=== PATIENT | male | born 1945 | race Caucasian/White ===

== ENCOUNTER → 2016-03-21 14:39 | Outpatient (CLI) | payer MEDICARE ==
[2016-01-27 13:11] VITALS: BMI 28.7
[~2016-03-21 14:39] MED LIST: AREDS PO; BAYER CHEWABLE81 MG PO; CHILDREN'S50 MG/1.21 PO; CIPRO250 MG PO; DURAGESIC1 PATCH .7 TRANSDERM; FLAGYL500 MG PO; HYDROCODON-ACE1 EAC7 PO; MIRALAX17 GM PO; PLAVIX75 MG PO; PRESERVISION AR1 CAP PO; PRINZIDE 20-251 TA1 PO
== END | disposition home or self-care (01) ==
LOC: D.CT 14:39
DX: R10.9 Unspecified abdominal pain (principal)

== ENCOUNTER → 2016-03-21 18:39 | Outpatient (CLI) | payer MEDICARE ==
[2016-01-27 13:11] VITALS: BMI 28.7
== END | disposition home or self-care (01) ==
LOC: D.LAB 18:39
DX: R10.9 Unspecified abdominal pain (principal)

== ENCOUNTER 2016-03-25 06:42 | Outpatient (CLI) | payer MEDICARE ==
[~2016-03-25] VITALS: Ht 177.8 cm; Wt 92.3 kg
[~2016-03-25 06:42] MED LIST changes: -AREDS PO; -CHILDREN'S50 MG/1.21 PO; -CIPRO250 MG PO; -DURAGESIC1 PATCH .7 TRANSDERM; -FLAGYL500 MG PO; -HYDROCODON-ACE1 EAC7 PO; -MIRALAX17 GM PO
[2016-03-25] MEDS ORDERED: FLAGYL500 MG PO (08:04)
[2016-03-25] MEDS ORDERED: CIPRO250 MG PO (08:04)
[2016-03-25 08:06] LABS: CALC OSMOLALITY 273 mosm/kg (275-300); CALCIUM 9.3 mg/dL (8.5-10.1); CARBON DIOXIDE 29.8 mmol/L (21.0-32.0); CHLORIDE - SERUM 99 mmol/L (98-107); GLUCOSE 109 mg/dL (74-106); POTASSIUM - SERUM 4.1 mmol/L (3.5-5.1); SODIUM 137 mmol/L (136-145); UREA NITROGEN 11 mg/dL (7-18); eGFR NON AFRICAN AMERICAN 79 mL/min (90-120)
[2016-03-25 08:13] VITALS: BP 123/68; Ht 177.8 cm; Wt 92.3 kg
[2016-03-25 08:16] LABS: BASOPHILS 0.6 % (0.0-2.0); HEMATOCRIT 38.2 % (42.0-54.0); HEMOGLOBIN 12.9 g/dL (13.5-17.5); IMMATURE GRANULOCYTES 0.2 % (0-5); LYMPHOCYTES 20.8 % (15-50); MCH 32.1 pg (26.0-34.0); MCHC 33.8 g/dL (31.0-37.0); MEAN PLATELET VOLUME 9.4 fL (7.4-10.4); MONOCYTES 7.8 % (2-11); NEUTROPHILS 58.6 % (40-80); PLATELET COUNT 380 10x3/uL (130-400); RBC 4.02 10x6/uL (4.20-6.10); RDW 12.4 % (11.5-14.5); WBC 10.4 10x3/uL (4.8-10.8)
[2016-03-25 08:20] LABS: APTT 29.4 SECONDS (22.8-39.4); INR 1.06 (0.85-1.17); PROTIME 13.6 SECONDS (11.6-15.0)
--- NOTE | 2016-03-25 12:35 | NUR ---
VOIDED WITHOUT DIFFICULTY. BACK DRESSING C/D/I. IV REMOVED INTACT. TO RADIOLOGY FOR SCAN PER WHEELCHAIR.
--- NOTE | 2016-03-25 13:20 | NUR ---
BACK FROM BONE SCAN AND DRESSED. DISCHARGE INSTRUCTIONS GIVEN, VOICED UNDERSTANDING. DISCHARGED HOME VIA WC.
== END 2016-03-25 13:20 | disposition home or self-care (01) ==
LOC: D.NM 06:42 → D.OPS 06:42 → D.NM 08:15 → D.OPS 13:20
PROVIDERS: General Practice
DX: C90.00 Multiple myeloma not having achieved remission (principal)

== ENCOUNTER 2016-04-05 08:01 | Day surgery (SDC) | payer MEDICARE ==
[~2016-04-05] VITALS: Ht 175.3 cm; Wt 87.3 kg
[~2016-04-05 08:01] MED LIST changes: +CIPRO250 MG PO; +FLAGYL500 MG PO
[2016-04-05] MEDS ORDERED: MIRALAX17 GM PO (09:29)
[2016-04-05] MEDS ORDERED: DURAGESIC1 PATCH .7 TRANSDERM (09:30)
[2016-04-05 09:32] LABS: BASOPHILS 0.6 % (0.0-2.0); EOSINOPHILS 15.8 % (0-7); HEMATOCRIT 37.5 % (42.0-54.0); HEMOGLOBIN 12.8 g/dL (13.5-17.5); IMMATURE GRANULOCYTES 0.2 % (0-5); LYMPHOCYTES 19.8 % (15-50); MCH 31.9 pg (26.0-34.0); MCHC 34.1 g/dL (31.0-37.0); MCV 93.5 fL (80.0-100.0); MEAN PLATELET VOLUME 9.3 fL (7.4-10.4); MONOCYTES 6.9 % (2-11); NEUTROPHILS 56.7 % (40-80); PLATELET COUNT 362 10x3/uL (130-400); RBC 4.01 10x6/uL (4.20-6.10); RDW 12.3 % (11.5-14.5); WBC 8.4 10x3/uL (4.8-10.8)
[2016-04-05] MEDS ORDERED: HYDROCODON-ACE1 EAC7 PO (09:33)
[2016-04-05] MEDS ORDERED: CHILDREN'S50 MG/1.21 PO (09:34)
[2016-04-05] MEDS ORDERED: AREDS PO (09:35)
[2016-04-05 09:37] LABS: CALC OSMOLALITY 275 mosm/kg (275-300); CALCIUM 9.2 mg/dL (8.5-10.1); CHLORIDE - SERUM 99 mmol/L (98-107); GLUCOSE 110 mg/dL (74-106); POTASSIUM - SERUM 4.3 mmol/L (3.5-5.1); SODIUM 138 mmol/L (136-145); UREA NITROGEN 11 mg/dL (7-18); eGFR NON AFRICAN AMERICAN 79 mL/min (90-120)
[2016-04-05 09:38] LABS: APTT 30.3 SECONDS (22.8-39.4); INR 1.03 (0.85-1.17); PROTIME 13.4 SECONDS (11.6-15.0)
[2016-04-05 09:40] VITALS: BP 122/68; Ht 175.3 cm; Wt 87.3 kg
--- NOTE | 2016-04-05 14:11 | NUR ---
1245 IV DC WITH CATHER TIP INTACT
--- NOTE | 2016-04-20 10:18 | OP ---
PATIENT NAME: REN MACIEL MEDICAL RECORD: [id number] :47 LOCATION:D.OPS ADMISSION DATE: SURGEON: HILARIO JOSUE MD DATE OF OPERATION: 04/05/2016 PREOPERATIVE DIAGNOSES: 1. History of colon polyps in need of surveillance colonoscopy. 2. CT evidence of metastatic disease to the bone with unknown primary. POSTOPERATIVE DIAGNOSES: 1. History of colon polyps in need of surveillance colonoscopy. 2. CT evidence of metastatic disease to the bone with unknown primary. 3. No evidence of colon polyps. No evidence of rectal masses, severe pain and diverticulosis. PROCEDURE: Total colonoscopy to cecum. SURGEON: Hilario Josue MD. AIRDROP SYSTEMS TECHNICIAN: None. BLOOD LOSS: Minimal. ANESTHESIA: IV sedation. COMPLICATIONS: None. The risks, possible complications and alternatives to procedure were explained to the patient. He elects to proceed. The discussion specifically included, but was not limited to, bleeding requiring an emergency reoperation, infection, intestinal injury and intestinal perforation. OPERATIVE COURSE: The patient was conveyed to the GI lab electively on 04/05/2016. IV sedation was induced by the anesthesia staff. The patient was placed in the Fletcher position. A digital rectal examination was performed. The prostate was symmetric. It was without nodules. It was of normal size. A colonoscope was inserted through the anus. It was easily advanced to the cecum. The prep was excellent. I slowly withdrew the endoscope. I irrigated and aspirated extensively. The pullback was greater than a 14-minute pullback. No biopsies were obtained. I dragged the folds. A retroflexed view was obtained in the rectum. I then unretroflexed the scope and removed it under direct vision. There is no followup appointment is going to be necessary for me in the office. I am going to plan for the patient's next colonoscopy to be in 3 years. TRANSINT:[id number] Voice Confirmation ID: [id number] DOCUMENT ID: [id number] OPERATIVE REPORT [id number] JANELLREN HILARIO RESENDEZ MD at 1018 CC: KENN SINGH DO and JAYDE GOMEZ MD [id number] DICTATION DATE: 04/05/16 1209 VISUAL EFFECTS ARTIST: 04/05/161912 [facility] 04/05/16 [facility] [address] [place] [address]
--- NOTE | 2016-04-20 10:18 | HP ---
PATIENT: REN MACIEL MEDICAL RECORD: [id number] ACCOUNT: [id number] LOCATION:PIETER : 47 ADMISSION DATE: 04/05/16 HISTORY AND PHYSICAL EXAMINATION CHIEF COMPLAINT: History of colon polyps. HISTORY OF PRESENT ILLNESS: The patient has a history of colon polyps. He is here to undergo a surveillance colonoscopy. The patient recently underwent a CT scan. It revealed a number of sclerotic lesions within the bone, which is consistent with metastatic disease. The patient states that he has not had any history of prostate cancer. He has had no abdominal pain. No rectal bleeding. The risks, possible complications and alternatives of procedure were explained to the patient. He elects to proceed. PAST MEDICAL AND SURGICAL HISTORY: COPD, sleep apnea, history of coronary stents times 1, gastroesophageal reflux which is medication controlled, hypertension. REVIEW OF SYSTEMS: Negative for diabetes or thyroid problems. Negative for renal disease or hepatitis. SOCIAL HISTORY: Smoker. I have advised him to quit smoking. ALLERGIES: No known drug allergies. HOME MEDICINES: Lisinopril, fentanyl patch, [place], ibuprofen. PHYSICAL EXAMINATION: GENERAL: The patient does not appear acutely ill. He does not appear chronically ill. VITAL SIGNS: Reviewed. HEAD: External ears appear normal. EYES: Extraocular movements are intact. NECK: Trachea is midline. CHEST: No intercostal retractions. PULMONARY: Nonlabored, no stridor. ABDOMEN: Nontender. IMPRESSION: 1. History of colon polyps. 2. Probable metastatic malignancy with an unknown primary. PLAN: Will be colonoscopy. TRANSINT:[id number] Voice Confirmation ID: [id number] DOCUMENT ID: [id number] HISTORY AND PHYSICAL [id number] REN MACIEL ROBERT MD at 1018 CC: KENN SINGH DO, KOTA, MANJUSHA MD and JAYDE GOMEZ [id number] DICTATION DATE: 04/05/16 1055 PROCESS COACH: 04/05/16 1249 [facility] 04/05/[address] [address]
== END 2016-04-05 12:55 | disposition home or self-care (01) ==
LOC: D.OPS 08:01
PROVIDERS: Anesthesiology
DX: Z86.010 Personal history of colon polyps (principal); I10 Essential (primary) hypertension; K21.9 Gastro-esophageal reflux disease without esophagitis; J44.9 Chronic obstructive pulmonary disease, unspecified; G47.30 Sleep apnea, unspecified; Z95.5 Presence of coronary angioplasty implant and graft

== ENCOUNTER 2016-04-21 09:07 | Day surgery (SDC) | payer MEDICARE ==
[~2016-04-21] VITALS: Ht 175.3 cm; Wt 82.6 kg
[~2016-04-21 09:07] MED LIST changes: +AREDS PO; +CHILDREN'S50 MG/1.21 PO; +DURAGESIC1 PATCH .7 TRANSDERM; +HYDROCODON-ACE1 EAC7 PO; +MIRALAX17 GM PO
[2016-04-21 10:09] LABS: BASOPHILS 0.6 % (0.0-2.0); EOSINOPHILS 6.8 % (0-7); HEMATOCRIT 35.3 % (42.0-54.0); HEMOGLOBIN 12.1 g/dL (13.5-17.5); IMMATURE GRANULOCYTES 0.1 % (0-5); LYMPHOCYTES 20.6 % (15-50); MCH 31.5 pg (26.0-34.0); MCHC 34.3 g/dL (31.0-37.0); MCV 91.9 fL (80.0-100.0); MEAN PLATELET VOLUME 9.7 fL (7.4-10.4); NEUTROPHILS 62.9 % (40-80); RBC 3.84 10x6/uL (4.20-6.10); RDW 12.3 % (11.5-14.5); WBC 7.9 10x3/uL (4.8-10.8)
[2016-04-21 10:13] LABS: PLATELET COUNT 264 10x3/uL (130-400)
[2016-04-21 10:18] LABS: INR 0.98 (0.85-1.17); PROTIME 12.9 SECONDS (11.6-15.0)
[2016-04-21 10:23] LABS: CALCIUM 9.1 mg/dL (8.5-10.1); CARBON DIOXIDE 28.2 mmol/L (21.0-32.0); CREATININE - SERUM 1.2 mg/dL (0.6-1.3); POTASSIUM - SERUM 4.2 mmol/L (3.5-5.1)
[2016-04-21 10:34] VITALS: BP 155/88; Ht 175.3 cm; Wt 82.6 kg
[2016-04-21] MEDS ORDERED: HYDROCODON-ACE1 EAC7 PO (13:34)
--- NOTE | 2016-04-21 15:24 | NUR ---
1505- IV D/C'D, PT TOLERATED. CATHETER INTACT. 1510- DISCHARGE INSTRUCTIONS COMPLETED AND SIGNED. 1520- PT DISCHARGED VIA WHEELCHAIR WITH .
--- NOTE | 2016-05-20 13:21 | OP ---
PATIENT NAME: REN MACIEL MEDICAL RECORD: [id number] :47 LOCATION:D.OPS ADMISSION DATE: SURGEON: AJAY REY MD DATE OF OPERATION: 04/21/2016 PREOPERATIVE DIAGNOSES: 1. Multiple myeloma. 2. Hypertension. 3. Coronary artery disease. 4. Tobacco dependence syndrome. POSTOPERATIVE DIAGNOSES: 1. Multiple myeloma. 2. Hypertension. 3. Coronary artery disease. 4. Tobacco dependence syndrome. PROCEDURE: 1. Left subclavian vein PowerPort placement. 2. Fluoroscopic interpretation. SURGEON: Ajay Rey MD. REPORT OF PROCEDURE: The patient's left chest was prepped and draped in sterile fashion. A needle was used to cannulate the left subclavian vein. A guidewire was advanced with ease. Fluoro was used to note that the wire was in good position in the venous system. We then made a subcutaneous pouch overlying the lateral aspect of the left pectoral fascia. The catheter was tunneled between this pouch and the wire exit site. The port was sutured to the pectoral fascia using interrupted 2-0 Prolenes times 2. The catheter was then cut with a beveled tip at 22 cm. The dilator trocar device was placed over the wire and the wire and dilator were removed. The catheter tip was advanced through the trocar with ease and the trocar was removed. The catheter aspirated nonpulsatile dark blood and flushed easily with heparinized saline. The subcutaneous tissues were reapproximated with interrupted 3-0 Vicryl and the skin was closed with running subcutaneous 5-0 Monocryl. COMPLICATIONS: None. CONDITION: Stable. ANESTHESIA: General endotracheal and local. BLOOD LOSS: Minimal. TRANSINT:[id number] Voice Confirmation ID: [id number] DOCUMENT ID: [id number] OPERATIVE REPORT [id number] REN MACIEL AJAY REY MD at 1321 CC: GLORIA FISHER MD [id number] DICTATION DATE: 04/21/16 1337 WET ROOM WORKER: 04/21/163 [facility] 04/21/16 [place] [address]
== END 2016-04-21 15:20 | disposition home or self-care (01) ==
LOC: D.OPS 09:07
PROVIDERS: Anesthesiology
DX: C90.00 Multiple myeloma not having achieved remission (principal); I10 Essential (primary) hypertension; I25.10 Atherosclerotic heart disease of native coronary artery without angina pectoris; F17.200 Nicotine dependence, unspecified, uncomplicated

== ENCOUNTER 2017-01-02 07:59 | Outpatient (CLI) | payer MEDICARE ==
[~2017-01-02] VITALS: Ht 175.3 cm; Wt 94.5 kg
[2017-01-02] MEDS ORDERED: VALTREX1000 MG PO (08:54)
[2017-01-02] MEDS ORDERED: ADVIL200 MG PO (08:55)
[2017-01-02] MEDS ORDERED: APAP325 MG PO (08:56)
[2017-01-02 09:06] VITALS: Ht 175.3 cm; Wt 94.5 kg
[2017-01-02 09:26] LABS: BASOPHILS 0.5 % (0-2); EOSINOPHILS 6.1 % (0-7); HEMATOCRIT 41.6 % (42.0-54.0); HEMOGLOBIN 14.3 g/dL (13.5-17.5); IMMATURE GRANULOCYTES 0.2 % (0-5); LYMPHOCYTES 16.6 % (15-50); MCH 33.1 pg (26.0-34.0); MCHC 34.4 g/dL (31.0-37.0); MCV 96.3 fL (80.0-100.0); MEAN PLATELET VOLUME 10.2 fL (7.4-10.4); MONOCYTES 7.5 % (2-11); NEUTROPHILS 69.1 % (40-80); PLATELET COUNT 281 10x3/uL (130-400); RBC 4.32 10x6/uL (4.20-6.10); WBC 9.7 10x3/uL (4.8-10.8)
[2017-01-02 09:34] LABS: CALC OSMOLALITY 277 mosm/kg (275-300); CALCIUM 8.9 mg/dL (8.5-10.1); CARBON DIOXIDE 30.7 mmol/L (21.0-32.0); CHLORIDE - SERUM 102 mmol/L (98-107); CREATININE - SERUM 0.7 mg/dL (0.6-1.3); GLUCOSE 110 mg/dL (74-106); SODIUM 140 mmol/L (136-145); UREA NITROGEN 8 mg/dL (7-18); eGFR NON AFRICAN AMERICAN > 90 mL/min (90-120)
[2017-01-02 09:37] LABS: APTT 27.6 SECONDS (22.8-39.4); INR 0.91 (0.85-1.17)
--- NOTE | 2017-01-02 11:25 | NUR ---
PT REC'D TO ROOM VIA STRETCHER. AWAKE, ALERT, ORIENTED. DRESSING TO LOWER BACK C/D/I. SEE FREQUENT V/S SHEET FOR VS. REG DIET PROVIDED.
--- NOTE | 2017-01-02 11:55 | NUR ---
PT STABLE, DRESSING REMAINS C/D/I. TOLERATED REG DIET.
--- NOTE | 2017-01-02 12:45 | NUR ---
DIET COLA REQUESTED AND PROVIDED.
--- NOTE | 2017-01-02 13:30 | NUR ---
PT UP TO BR TO VOID. DRESSING TO BACK REMAINS C/D/I
--- NOTE | 2017-01-02 14:13 | NUR ---
IV D/C'D CATH INTACT. D/C INSTRUCTIONS EXPLAINED TO PT. VOICED UNDERSTANDING. COPIES OF ALL GIVEN. AWAITING TRANSPORTATION FOR D/C.
--- NOTE | 2017-01-02 14:31 | NUR ---
D/C'D HOME VIA W/C TO PRIVATE CAR.
== END 2017-01-02 14:33 | disposition home or self-care (01) ==
LOC: D.OPS 07:59 → D.CT 10:00 → D.OPS 14:33
PROVIDERS: Radiology Diagnostic Radiology
DX: C90.00 Multiple myeloma not having achieved remission (principal); D64.9 Anemia, unspecified

== ENCOUNTER 2017-10-12 06:31 | Outpatient (CLI) | payer OTHER ==
[~2017-10-12] VITALS: Ht 175.3 cm; Wt 95.5 kg
[~2017-10-12 06:31] MED LIST changes: +ADVIL200 MG PO; +APAP325 MG PO; +VALTREX1000 MG PO
[2017-10-12 07:04] LABS: BASOPHILS 0.6 % (0-2); HEMATOCRIT 41.4 % (42.0-54.0); HEMOGLOBIN 14.3 g/dL (13.5-17.5); IMMATURE GRANULOCYTES 0.1 % (0-5); LYMPHOCYTES 20.3 % (15-50); MCH 33.3 pg (26.0-34.0); MCHC 34.5 g/dL (31.0-37.0); MCV 96.3 fL (80.0-100.0); MEAN PLATELET VOLUME 9.6 fL (7.4-10.4); MONOCYTES 8.1 % (2-11); NEUTROPHILS 63.9 % (40-80); PLATELET COUNT 262 10x3/uL (130-400); RDW 13.3 % (11.5-14.5); WBC 8.1 10x3/uL (4.8-10.8)
[2017-10-12 07:14] LABS: CALC OSMOLALITY 274 mosm/kg (275-300); CALCIUM 8.3 mg/dL (8.5-10.1); CARBON DIOXIDE 30.1 mmol/L (21.0-32.0); CHLORIDE - SERUM 101 mmol/L (98-107); CREATININE - SERUM 0.9 mg/dL (0.6-1.3); GLUCOSE 125 mg/dL (74-106); POTASSIUM - SERUM 3.8 mmol/L (3.5-5.1); SODIUM 138 mmol/L (136-145); UREA NITROGEN 8 mg/dL (7-18); eGFR NON AFRICAN AMERICAN 88 mL/min (90-120)
[2017-10-12 07:18] LABS: APTT 26.7 SECONDS (22.8-39.4); INR 0.89 (0.85-1.17); PROTIME 11.7 SECONDS (11.6-15.0)
[2017-10-12 07:52] VITALS: BP 148/70; Ht 175.3 cm; Wt 95.5 kg
== END 2017-10-12 11:28 | disposition home or self-care (01) ==
LOC: D.SP 06:31 → D.CT 09:00 → D.SP 09:00
PROVIDERS: Radiology Diagnostic Radiology
DX: C90.00 Multiple myeloma not having achieved remission (principal); Z01.812 Encounter for preprocedural laboratory examination

== ENCOUNTER → 2018-05-08 09:04 | Outpatient (CLI) | payer OTHER ==
[2017-10-12 07:52] VITALS: BMI 31.0
== END | disposition home or self-care (01) ==
LOC: D.RAD 08:45
PROVIDERS: ATTEND Internal Medicine Hematology & Oncology
DX: C90.00 Multiple myeloma not having achieved remission (principal)

== ENCOUNTER 2018-08-31 07:44 | Outpatient (CLI) | payer OTHER ==
[~2018-08-31] VITALS: Ht 175.3 cm; Wt 97.7 kg
[2018-08-31 08:07] LABS: BASOPHILS 0.6 % (0-2); EOSINOPHILS 17.3 % (0-7); HEMATOCRIT 41.3 % (42.0-54.0); HEMOGLOBIN 14.4 g/dL (13.5-17.5); IMMATURE GRANULOCYTES 0.2 % (0-5); LYMPHOCYTES 22.9 % (15-50); MCH 32.5 pg (26.0-34.0); MCHC 34.9 g/dL (31.0-37.0); MCV 93.2 fL (80.0-100.0); MONOCYTES 7.1 % (2-11); NEUTROPHILS 51.9 % (40-80); PLATELET COUNT 276 10x3/uL (130-400); RBC 4.43 10x6/uL (4.20-6.10); RDW 13.6 % (11.5-14.5); WBC 8.7 10x3/uL (4.8-10.8)
[2018-08-31 08:18] LABS: CALC OSMOLALITY 276 mosm/kg (275-300); CALCIUM 8.6 mg/dL (8.5-10.1); CARBON DIOXIDE 30.4 mmol/L (21.0-32.0); CHLORIDE - SERUM 102 mmol/L (98-107); CREATININE - SERUM 0.9 mg/dL (0.6-1.3); GLUCOSE 132 mg/dL (74-106); POTASSIUM - SERUM 4.1 mmol/L (3.5-5.1); SODIUM 139 mmol/L (136-145); UREA NITROGEN 5 mg/dL (7-18); eGFR NON AFRICAN AMERICAN 88 mL/min (90-120)
[2018-08-31 08:23] LABS: INR 0.92 (0.85-1.17); PROTIME 11.8 SECONDS (11.6-15.0)
[2018-08-31] MEDS ORDERED: BAYER CHEWABLE81 MG PO (09:17)
[2018-08-31] MEDS ORDERED: OCUVITE PO (09:19)
[2018-08-31 09:37] VITALS: BP 122/75; Ht 175.3 cm; Wt 97.7 kg
--- NOTE | 2018-08-31 11:00 | NUR ---
REC'D FROM SPECIALS. AT BEDSIDE. BIOPSY SITE CDI.
--- NOTE | 2018-08-31 11:28 | NUR ---
REGULAR DIET SERVED TO PT.
--- NOTE | 2018-08-31 11:45 | NUR ---
TOLERATED REGULAR DIET. IV DC'D WITH CATHETER INTACT.
--- NOTE | 2018-08-31 11:55 | NUR ---
WRITTEN AND VERBAL DC INST. GIVEN TO PATIENT. VERBALIZED UNDERSTANDING.
--- NOTE | 2018-08-31 12:05 | NUR ---
DC'D HOME WITH FAMILY VIA PRIVATE VEHICLE. STABLE AT TIME OF DC.
== END 2018-08-31 12:05 | disposition home or self-care (01) ==
LOC: D.SP 07:44 → D.CT 10:00 → D.SP 12:05
PROVIDERS: Radiology Diagnostic Radiology; ATTEND Internal Medicine Hematology & Oncology
DX: C90.00 Multiple myeloma not having achieved remission (principal); Z01.812 Encounter for preprocedural laboratory examination

== ENCOUNTER → 2019-07-30 08:28 | Outpatient (CLI) | payer OTHER ==
[2018-08-31 09:37] VITALS: BMI 31.8
[~2019-07-30 08:28] MED LIST changes: +OCUVITE PO
--- NOTE | 2019-07-31 09:31 | EC ---
PATIENT:REN MACIEL DATE OF SERVICE: 07/30/19 SEX: M MEDICAL RECORD: [id number] DATE OF : 47 LOCATION:D.[facility] AGE OF PATIENT: 73 ADMISSION DATE: 07/30/19 REFERRING PHYSICIAN: INTERPRETING PHYSICIAN: JAYDE GOMEZ MD ECHOCARDIOGRAM REPORT ECHO CHARGES 4 ECHO COMPLETE Date: 07/30/19 CLINICAL DIAGNOSIS: HTN/CAD ECHOCARDIOGRAPHIC MEASUREMENTS (adult normal given) AC root (d.<3.7cm) 3.6 cm LV Septum d (<1.2 cm> 1.8 cm Valve Excursion 1.4 cm LV Septum (systole) 2.0 cm Left Atria (s.<4.0cm> 3.9 cm LVPW d(<1.2cm) 1.6 cm RV (d.<2.3cm) 3.8 cm LVPW (sytole) 2.0 cm LV diastole(<5.6CM) 3.5 cm MV E-F(>70mm/sec) cm LV systole 2.0 cm LVOT Diameter 1.8 cm MV exc.(>10mm) 1.3 cm Est.ejection fraction (50-75%) % DOPPLER: LVIT cm/sec A 74.0 cm/sec E 50.0 cm/sec LA cm/sec RVSP 17 mmHg LVOT 116 cm/sec AOP1/2T m/s Asc. Ao 138 cm/sec RVOT 82 cm/sec RA cm/sec PA 133 cm/sec AV Gradient Peak 7.57 mmHg AV Mean 4.11 mmHg AV Area 2.3 cm MV Gradient Peak 4.37 mmHg MV Mean 2.20 mmHg MV Area cm COMMENTS: Clerical Production Worker: 2 NEFTALI NGUYEN Tectonophysicist: 3 Dr. Dejesus TAPE# PACS Pericardial Effusion N DATE OF SERVICE: 07/30/2019 Adequate 2D, color flow imaging, spectral Doppler, and M-Mode. LVH is present. LV internal dimension is normal. Wall motion is normal . EF greater than or equal to 55%. Aortic valve is tricuspid. No evidence of stenosis by Doppler interrogation. Left atrium is normal. Mitral valve shows no prolapse. Trivial MR. Right-sided chambers are grossly normal. Trivial TR. TRANSINT:[id number] Voice Confirmation ID: [id number] DOCUMENT ID: [id number] ECHOCARDIOGRAM REPORT [id number] REN MACIEL GREGORY A MD at 0931 CC: [id number] DICTATION DATE: 07/30/19 1526 LAB AID: 07/31/19 [id number] DEP CLI 07/30/19 [id number] [place] [address]
== END | disposition home or self-care (01) ==
LOC: D.HCCECHO 08:28
PROVIDERS: ATTEND Internal Medicine Interventional Cardiology
DX: I10 Essential (primary) hypertension (principal)

== ENCOUNTER → 2019-12-04 08:09 | Outpatient (CLI) | payer OTHER ==
[2018-08-31 09:37] VITALS: BMI 31.8
== END | disposition home or self-care (01) ==
LOC: D.HCCARDIO 08:09
PROVIDERS: ATTEND Internal Medicine Cardiovascular Disease
DX: I25.10 Atherosclerotic heart disease of native coronary artery without angina pectoris (principal)

== ENCOUNTER 2020-05-20 05:50 | Day surgery (SDC) | payer OTHER ==
--- NOTE | 2020-05-19 10:12 | NUR ---
ATTEMPTED TO CONFIRM APPT FOR 05/20/20 NO ANSWER, LEFT VOICEMAIL TO CALL
[~2020-05-20] VITALS: Ht 175.3 cm; Wt 102.3 kg
[~2020-05-20 05:50] MED LIST changes: +MONODOX100 MG PO
[2020-05-20 06:40] LABS: CALC OSMOLALITY 275 mosm/kg (275-300); CARBON DIOXIDE 28.1 mmol/L (21.0-32.0); CHLORIDE - SERUM 102 mmol/L (98-107); CREATININE - SERUM 0.9 mg/dL (0.6-1.3); GLUCOSE 137 mg/dL (74-106); POTASSIUM - SERUM 4.2 mmol/L (3.5-5.1); SODIUM 137 mmol/L (136-145); UREA NITROGEN 12 mg/dL (7-18); eGFR NON AFRICAN AMERICAN 88 mL/min (90-120)
[2020-05-20 07:07] LABS: BASOPHILS 0.3 % (0-2); EOSINOPHILS 3.5 % (0-7); HEMATOCRIT 43.8 % (42.0-54.0); HEMOGLOBIN 14.6 g/dL (13.5-17.5); IMMATURE GRANULOCYTES 0.1 % (0-5); LYMPHOCYTE ABS# 2.07 10x3/uL (1.32-3.57); LYMPHOCYTES 27.8 % (15-50); MCH 30.6 pg (26.0-34.0); MCHC 33.3 g/dL (31.0-37.0); MCV 91.8 fL (80.0-100.0); MEAN PLATELET VOLUME 9.4 fL (7.4-10.4); MONOCYTES 8.7 % (2-11); NEUTROPHIL ABS# 4.44 10x3/uL (1.78-5.38); NEUTROPHILS 59.6 % (40-80); PLATELET COUNT 309 10x3/uL (130-400); RBC 4.77 10x6/uL (4.20-6.10); RDW 13.7 % (11.5-14.5); WBC 7.5 10x3/uL (4.8-10.8)
[2020-05-20 07:12] VITALS: Ht 175.3 cm; Wt 102.3 kg
[2020-05-20 08:49] LABS: APTT 26.8 SECONDS (22.8-39.4)
[2020-05-20 10:12] LABS: INR 0.95 (0.85-1.17); PROTIME 11.7 SECONDS (11.6-15.0)
--- NOTE | 2020-05-20 10:40 | NUR ---
IV REMOVED WITH TIP INTACT, DISCHARGE INSTRUCTIONS PROVIDED. WHEELED OUT TO FAMILY
== END 2020-05-20 10:50 | disposition home or self-care (01) ==
LOC: D.SP 05:50 → D.CT 08:00 → D.SP 10:50
PROVIDERS: Specialist; ATTEND Internal Medicine Hematology & Oncology
DX: C90.00 Multiple myeloma not having achieved remission (principal); R53.83 Other fatigue; K59.00 Constipation, unspecified

== ENCOUNTER → 2020-07-15 10:40 | Day surgery (SDC) | payer OTHER ==
[2020-05-20 07:12] VITALS: BMI 33.3
--- NOTE | ~2020-07-15 | HEMODYNAMI ---
PATIENT:REN MACIEL MEDICAL RECORD: [id number] : 47 LOCATION:D. ADMISSION DATE: 07/15/20 Generatedon:112:12 Patient name: REN MACIEL Patient #: [id number] SSN: [id number] : 1945 Date of study: 07/15/2020 Page: Of Hemodynamic Procedure Report Patient Data Patient Demographics Procedure consent was obtained First Name: REN Gender: Male Last Name: JANELL : 1945 Middle Initial: KYM Age: 74 year(s) Patient #: [id number] Race: SSN: [id number] Additional ID: [id number] Contact details Address: [address] [address] State: [place] City: [place] Zip code: [address] Past Medical History Allergies: No known allergies Admission Admission Data Admission Date: 07/15/2020 Admission Time: 10:40 Procedure Procedure Types Cath Procedure Peripheral Cath Diagnostic Procedure [employer] Remover Peripheral Procedures Miscellaneous Cathetergram Procedure Description Procedure Date Procedure Date: 07/15/2020 Procedure Start Time: 11:48 Procedure Staff Name Function Michael Perkins MD Performing Physician Lillian Patel RT Optometric Assistant Nelsy Moss RN Nurse Robin Fung RT Scrub Procedure Data Cath Procedure Fluoroscopy Diagnostic fluoroscopy Total fluoroscopy Time: 0.3 time: 0.3 min min Diagnostic fluoroscopy Total fluoroscopy dose: 19 dose: 19 mGy mGy Contrast Material Contrast Material Type Amount (ml) Isovue 300 15 Hemodynamics Rest Pre Cath Intra NCS Post Cath Procedure Log Time Note 11:33:54 Time tracking: Regular hours (M-F 7:00 - 5:00) 11:34:18 Plan of Care:Hemodynamics will remain stable., Cardiac rhythm will remain stable., Comfort level will be maintained., Respiratory function will remain adequate., Patient/ family verbilizes understanding of procedure., Procedure tolerated without complication., Recovers from procedure without complications.. 11:34:27 Patient received from Other to IR Alert and oriented. Tansferred to table in Supine position. 11:35:06 Signed procedure consent form obtained from patient. 11:35:33 Patient allergic to No known allergies 11:36:08 Left chest area was prepped with chlora-prep and draped in sterile fashion 11:36:12 - 11:47:36 Physician arrived 11:47:37 --------ALL STOP TIME OUT------ 11:47:37 Final Timeout: patient, procedure, and site verified with staff and physician. All members of the team are in agreement. 11:47:42 Left chest site verified by team. 11:47:50 Sedation plan: None Medication:Lidocaine 11:48:05 Procedure started. 11:48:05 Full Disclosure recording started 12:11:24 Procedure ended.(Physican Out) 12:11:39 Fluoroscopy time 00.30 minutes. 12:11:44 Fluoroscopy dose: 19 mGy 12:11:44 Flurop Dose total: 19 12:11:58 Contrast amount:Isovue 300 15ml. 12:12:13 site stable pt sent home Signature Audit [employer] Stage Time Signature Unsigned Intra-Procedure 07/15/2020 Robin 12:12:27 PM [facility] RT (R) () [id number] [place] [address]
== END | disposition home or self-care (01) ==
LOC: D.SP 10:40
PROVIDERS: ATTEND Internal Medicine Hematology & Oncology
DX: C79.51 Secondary malignant neoplasm of bone (principal); D70.9 Neutropenia, unspecified; R06.02 Shortness of breath; K21.9 Gastro-esophageal reflux disease without esophagitis; R10.9 Unspecified abdominal pain; J06.9 Acute upper respiratory infection, unspecified; I10 Essential (primary) hypertension; C90.00 Multiple myeloma not having achieved remission; Z45.2 Encounter for adjustment and management of vascular access device; T82.898A Other specified complication of vascular prosthetic devices, implants and grafts, initial encounter; Z51.11 Encounter for antineoplastic chemotherapy; R05 Cough; R53.83 Other fatigue; K57.92 Diverticulitis of intestine, part unspecified, without perforation or abscess without bleeding; K59.00 Constipation, unspecified

== ENCOUNTER 2020-08-19 19:25 | Day surgery (SDC) | payer OTHER ==
[2020-08-18 09:35] LABS: EOSINOPHILS 2.7 % (0-7); HEMATOCRIT 42.9 % (42.0-54.0); HEMOGLOBIN 14.6 g/dL (13.5-17.5); LYMPHOCYTES 23.9 % (15-50); MCH 32.2 pg (26.0-34.0); MCV 94.7 fL (80.0-100.0); MEAN PLATELET VOLUME 7.3 fL (7.4-10.4); MONOCYTES 6.6 % (2-11); NEUTROPHILS 65.8 % (40-80); PLATELET COUNT 291 10x3/uL (130-400); RBC 4.53 10x6/uL (4.20-6.10); RDW 15.8 % (11.5-14.5); WBC 7.8 10x3/uL (4.8-10.8)
[2020-08-18 09:48] LABS: CALC OSMOLALITY 277 mosm/kg (275-300); CALCIUM 8.7 mg/dL (8.5-10.1); CARBON DIOXIDE 29.4 mmol/L (21.0-32.0); CHLORIDE - SERUM 103 mmol/L (98-107); CREATININE - SERUM 0.7 mg/dL (0.6-1.3); GLUCOSE 128 mg/dL (74-106); POTASSIUM - SERUM 3.8 mmol/L (3.5-5.1); SODIUM 139 mmol/L (136-145); UREA NITROGEN 6 mg/dL (7-18); eGFR NON AFRICAN AMERICAN > 90 mL/min (90-120)
[~2020-08-19] VITALS: Ht 175.3 cm; Wt 99.8 kg
[2020-08-19 07:59] VITALS: BP 113/54; Ht 175.3 cm; Wt 99.8 kg
--- NOTE | 2020-08-19 19:13 | NUR ---
1225 - PATIENT DISCHARGED VIA WHEELCHAIR TO PRIVATE CAR.
--- NOTE | 2020-08-19 19:13 | NUR ---
1202 - IV D/C'D WITH TIP INTACT. PATIENT DRESSED FOR DISCHARGE.
[~2020-08-19 19:25] MED LIST changes: +CRESTOR10 MG PO; +FOLIC ACID1 MG PO; +METHOTREXATE2.5 MG PO
== END 2020-08-19 19:27 | disposition home or self-care (01) ==
LOC: D.OPS 19:25
PROVIDERS: Anesthesiology; ATTEND Surgery
DX: Z45.2 Encounter for adjustment and management of vascular access device (principal); Z85.79 Personal history of other malignant neoplasms of lymphoid, hematopoietic and related tissues; M54.5 Low back pain